=== PATIENT | male | born 1990 | race Two or more races ===

== ENCOUNTER 2023-01-04 19:25 | Inpatient (IN) | payer MEDICARE, MEDICAID ==
[~2023-01-04] VITALS: Ht 175.3 cm; Wt 94.8 kg
[~2023-01-04 19:25] MED LIST: BENZ2TAB71 PO; HALO10TA21 PO; HALO5TAB23 PO
[2023-01-04] MEDS ORDERED: LORazepam 2 MG TABLET PO ONE (19:45)
[2023-01-04] MEDS ORDERED: HALOPERIDOL LACTATE 5 MG/ML VIAL IM ONE (19:45)
[2023-01-04] MEDS ORDERED: HALOPERIDOL 5 MG TABLET PO ONE (19:45)
[2023-01-04] MEDS ORDERED: LORazepam 2 MG/ML VIAL IM ONE (19:45)
[2023-01-04] MEDS ORDERED: DiphenhydrAMINE HCL 25 MG CAPSULE PO ONE (19:45)
[2023-01-04] MEDS ORDERED: DiphenhydrAMINE HCL 50 MG/ML VIAL IM ONE (19:45)
[2023-01-04 20:03] LABS: COVID AG,FIA SOURCE NASAL SWAB
[2023-01-04 20:07] LABS: BASOPHILS % (AUTO) 0.4 % (0.0-2.0); EOSINOPHILS % (AUTO) 1.3 % (1.0-6.0); HEMATOCRIT 37.3 % (41-53); HEMOGLOBIN 12.8 g/dL (13.5-17.5); LYMPHOCYTES # (AUTO) 2.2 K/uL (1.0-4.8); LYMPHOCYTES % (AUTO) 18.7 % (22.0-44.0); MEAN CORPUSCULAR HEMOGLOBIN 30.2 pg (26.0-34.0); MEAN CORPUSCULAR HGB CONC 34.4 G/dL (31.0-37.0); MEAN CORPUSCULAR VOLUME 88 fL (80-100); MONOCYTES # (AUTO) 0.5 K/uL (0.1-1.0); MONOCYTES % (AUTO) 4.2 % (2.0-9.0); NEUTROPHILS # (AUTO) 8.8 K/uL (1.8-7.7); NEUTROPHILS % (AUTO) 75.4 % (40.0-70.0); PLATELET COUNT (AUTO) 286 K/uL (150-450); RED BLOOD CELL COUNT(AUTO) 4.26 MIL/uL (4.50-5.90); RED CELL DISTRIBUTION WIDTH 13.3 % (11.5-14.5); WHITE BLOOD COUNT (AUTO) 11.6 K/uL (4.5-11.0)
[2023-01-04 20:08] LABS: SARS-COV2 (COVID) ANTIGEN,FIA Negative (Negative)
[2023-01-04 20:15] LABS: ANION GAP 9 mmol/L (8-16); CALCIUM, TOTAL 8.7 mg/dL (8.8-10.5); CARBON DIOXIDE 26 mmol/L (22-29); CHLORIDE 98 mmol/L (98-107); CREATININE 0.78 mg/dL (0.60-1.30); GLOMERULAR FILTR. RATE CALC > 60 mL/min (>60); GLUCOSE,RANDOM 90 mg/dL (70-110); POTASSIUM 3.7 mmol/L (3.5-5.1); SODIUM SERUM 133 mmol/L (136-145); UREA NITROGEN, BLOOD 6 mg/dL (7-18)
[2023-01-04 20:17] LABS: PH,URINE DRUG SCREEN 5.5 (5.0-8.0)
[2023-01-04 20:18] LABS: ALCOHOL, BLOOD (SERUM) < 3 mg/dL (0-10)
[2023-01-04 20:21] LABS: ALANINE AMINOTRANSFERASE 54 U/L (12-78); ALBUMIN 3.9 g/dL (3.4-5.0); ALKALINE PHOSPHATASE 96 U/L (46-116); ASPARTATE AMINOTRANSFERASE 27 U/L (15-37); BILIRUBIN,TOTAL 0.5 mg/dL (0.1-1.0); TOTAL PROTEIN, SERUM 7.3 g/dL (6.4-8.2)
[2023-01-04 20:23] LABS: AMPHET/METH SCREEN,URINE NEGATIVE (NEGATIVE); BARBITURATE SCREEN, URINE NEGATIVE (NEGATIVE); BENZODIAZEPINES SCREEN,URINE NEGATIVE (NEGATIVE); CANNABINOID SCREEN,URINE NEGATIVE (NEGATIVE); COCAINE SCREEN,URINE NEGATIVE (NEGATIVE); METHADONE SCREEN, URINE NEGATIVE (NEGATIVE); OPIATE SCREEN,URINE NEGATIVE (NEGATIVE); PHENCYCLIDINE SCREEN,URINE NEGATIVE (NEGATIVE)
[2023-01-04 20:26] LABS: ALCOHOL, URINE DRUG SCREEN NEGATIVE (NEGATIVE)
[2023-01-04] MEDS ORDERED: ZOLPIDEM TARTRATE 10 MG TABLET PO PRN (22:30)
[2023-01-04] MEDS ORDERED: LORazepam 2 MG TABLET PO PRN (22:30)
[2023-01-04] MEDS ORDERED: HALOPERIDOL 5 MG TABLET PO PRN (22:30)
[2023-01-05] MEDS ORDERED: HALO5TAB2 PO (14:26)
[2023-01-05] MEDS ORDERED: DIPH50CA35 PO (14:26)
[2023-01-05] MEDS ORDERED: MAGNESIUM HYDROXIDE SUSPENSION 30 ML UDCUP PO PRN (15:45)
[2023-01-05] MEDS ORDERED: ALBUTEROL SULFATE HFA 90 MCG/PUFF 8 GM INHALER IH PRN (15:45)
[2023-01-05] MEDS ORDERED: LOPERAMIDE HCL 2 MG CAPSULE PO PRN (15:45)
[2023-01-05] MEDS ORDERED: NICOTINE 14 MG/24 HOUR PATCH TD PRN (15:45)
[2023-01-05] MEDS ORDERED: GuaiFENesin/D-METHORPHAN [SUGAR-FREE] 200-20MG/10 ML SYRUP UDCUP PO PRN (15:45)
[2023-01-05] MEDS ORDERED: ACETAMINOPHEN 325 MG TABLET PO PRN (15:45)
[2023-01-05] MEDS ORDERED: MAG HYDROX/ALUMINUM HYD/SIMETH ES 30 ML SUSPENSION UDCUP PO PRN (15:45)
[2023-01-05] MEDS ORDERED: DOCUSATE SODIUM 100 MG CAPSULE PO PRN (15:45)
[2023-01-05] MEDS ORDERED: IBUPROFEN 400 MG TABLET PO PRN (15:45)
[2023-01-05] MEDS ORDERED: ONDANSETRON HCL 4 MG TABLET PO PRN (15:45)
[2023-01-05] MEDS ORDERED: PETROLATUM,WHITE 28 GM JELLY TP PRN (15:45)
[2023-01-05] MEDS ORDERED: CloNIDine HCL 0.1 MG TABLET PO PRN (15:45)
[2023-01-05 17:53] VITALS: BP 124/77; PULSE 95; RESP 18; TEMP 98.3; O2SAT 95
[2023-01-05] MEDS ORDERED: INFLUENZA VIRUS VACCINE QVS 2023-24 (6MO+)/PF 60 MCG/0.5 ML SYRINGE IM. ONE (18:30)
[2023-01-05] MEDS: AMOX TR/POT CLAV 875 MG/125 MG TABLET PO SCH (19:42)
[2023-01-06 08:00] VITALS: BP 107/62; PULSE 79; RESP 18; TEMP 98.3; O2SAT 99
[2023-01-06] MEDS: AMOX TR/POT CLAV 875 MG/125 MG TABLET PO SCH ×2 (08:41→16:22)
[2023-01-06 09:07] LABS: CHOL/HDL RATIO 5.5 (4.2-7.3); THYROID STIMULATING HORMONE 1.25 uIU/mL (0.36-3.74)
[2023-01-06] MEDS: OLANZapine 10 MG TABLET PO SCH ×2 (11:27→20:29)
[2023-01-06 18:03] VITALS: BP 135/82; PULSE 88; RESP 18; TEMP 97.9
[2023-01-06 20:17] VITALS: BP 130/78; PULSE 86; RESP 18; TEMP 97.8
[2023-01-07 08:11] LABS: APPEARANCE,URINE CLEAR (CLEAR); BILIRUBIN,URINE NEGATIVE (NEGATIVE); COLOR,URINE COLORLESS (YELLOW); GLUCOSE, URINE (UA) NEGATIVE (NEGATIVE); KETONES,URINE NEGATIVE (NEGATIVE); LEUKOCYTE ESTERASE ,URINE NEGATIVE (NEGATIVE); NITRATE,URINE NEGATIVE (NEGATIVE); OCCULT BLOOD,URINE NEGATIVE (NEGATIVE); PROTEIN,URINE NEGATIVE (NEGATIVE); SPECIFIC GRAVITIY, URINE 1.004 (1.003-1.030); UROBILINOGEN,URINE <=1.0 mg/dL (<=1.0)
[2023-01-07 08:22] VITALS: BP 100/62; PULSE 74; RESP 16; TEMP 97.3; O2SAT 96
[2023-01-07 08:29] LABS: AMPHET/METH SCREEN,URINE NEGATIVE (NEGATIVE); BARBITURATE SCREEN, URINE NEGATIVE (NEGATIVE); BENZODIAZEPINES SCREEN,URINE NEGATIVE (NEGATIVE); CANNABINOID SCREEN,URINE NEGATIVE (NEGATIVE); COCAINE SCREEN,URINE NEGATIVE (NEGATIVE); METHADONE SCREEN, URINE NEGATIVE (NEGATIVE); OPIATE SCREEN,URINE NEGATIVE (NEGATIVE); PHENCYCLIDINE SCREEN,URINE NEGATIVE (NEGATIVE)
[2023-01-07 08:30] LABS: ALCOHOL, URINE DRUG SCREEN NEGATIVE (NEGATIVE)
[2023-01-07] MEDS: AMOX TR/POT CLAV 875 MG/125 MG TABLET PO SCH ×2 (09:59→16:39)
[2023-01-07] MEDS: OLANZapine 10 MG TABLET PO SCH ×2 (09:59→20:58)
[2023-01-07] MEDS: BENZTROPINE MESYLATE 1 MG TABLET PO SCH (09:59)
[2023-01-07 21:46] VITALS: BP 112/63; PULSE 73; RESP 18; TEMP 98.2; O2SAT 95
[2023-01-08 08:59] VITALS: BP 140/76; PULSE 96; RESP 18; TEMP 98.9; O2SAT 98
[2023-01-08] MEDS: BENZTROPINE MESYLATE 1 MG TABLET PO SCH (09:27)
[2023-01-08] MEDS: OLANZapine 10 MG TABLET PO SCH (09:27)
[2023-01-08] MEDS: AMOX TR/POT CLAV 875 MG/125 MG TABLET PO SCH ×2 (09:27→17:25)
[2023-01-08] MEDS ORDERED: OLAN10TA74 PO ×2 (11:00→14:53)
[2023-01-08] MEDS ORDERED: BENZ1TAB84 PO ×2 (11:01→14:53)
== END 2023-01-08 17:50 | disposition home or self-care (01) | DRG 885 ==
LOC: EMS 19:27 → B2X 01-05 12:20
PROVIDERS: ADMIT Psychiatry & Neurology Child & Adolescent Psychiatry; ATTEND Psychiatry & Neurology Child & Adolescent Psychiatry
DX: F20.9 Schizophrenia, unspecified (principal); E87.1 Hypo-osmolality and hyponatremia; D72.829 Elevated white blood cell count, unspecified; Z20.822 Contact with and (suspected) exposure to COVID-19; D64.9 Anemia, unspecified; Z78.1 Physical restraint status; Z79.899 Other long term (current) drug therapy; Z87.891 Personal history of nicotine dependence
CPT/HCPCS: 80053; 80061; 80307; 81003; 83036; 84443; 85025; G0480